=== PATIENT | female | born 1950 | race Caucasian/White ===

== ENCOUNTER 2022-03-17 10:19 | Outpatient (CLI) | payer MEDICARE, OTHER, SELFPAY ==
--- NOTE | 2022-03-26 12:32 | WPDHOLTEREM ---
Holter/Event Monitor Holter/Event Monitor Date of procedure: 03/17/22 Holter/Event Procedure: Event Monitor Indications: Palpitations Conclusion: 1. 4 days event monitor between 03/17/22-03/23/22. There are 9 available transmissions for analysis. 2. Predominant rhythm is sinus rhythm. HR range 50-120 bpm; average HR 70 bpm. 3. There are intermittent premature supraventricular complexes with total burden of 3%. No supraventricular tachycardia. 4. There are occasional premature ventricular complexes with total burden of <1%. There is one episode of ventricular tachycardia with average HR of 119 bpm lasting 8 beats on 03/19/22 at 04:51. 5. No significant pauses greater than 2 seconds. 6. No symptoms available for correlation.
== END 2022-03-17 10:20 | disposition home or self-care (01) ==
PROVIDERS: PCP Family Medicine
DX: R00.2 Palpitations (principal)
CPT/HCPCS: 93270